=== PATIENT | male | born 1955 | race Caucasian/White ===

== ENCOUNTER 2025-02-04 10:53 | Outpatient (CLI) | payer MEDICARE, BC, SELFPAY | END 2025-02-04 10:54 | disposition home or self-care (01) | LOC: INJ CL 10:54 | PROVIDERS: PCP Family Medicine; Visit Provider Family Medicine | DX: M51.369 Other intervertebral disc degeneration, lumbar region without mention of lumbar back pain or lower extremity pain (principal); M54.16 Radiculopathy, lumbar region | CPT/HCPCS: 62323; J0702; Q9966 ==

== ENCOUNTER 2025-04-01 10:09 | Outpatient (CLI) | payer MEDICARE, BC, SELFPAY | END 2025-04-01 10:10 | disposition home or self-care (01) | LOC: INJ CL 10:10 | PROVIDERS: PCP Family Medicine; Visit Provider Family Medicine | DX: M54.16 Radiculopathy, lumbar region (principal); M51.369 Other intervertebral disc degeneration, lumbar region without mention of lumbar back pain or lower extremity pain | CPT/HCPCS: 64483; J1100; Q9966 ==

== ENCOUNTER 2025-06-17 07:53 | Outpatient (CLI) | payer MEDICARE, BC, SELFPAY | END 2025-06-17 07:54 | disposition home or self-care (01) | LOC: INJ CL 07:54 | PROVIDERS: PCP Family Medicine; Visit Provider Family Medicine | DX: M54.16 Radiculopathy, lumbar region (principal) | CPT/HCPCS: 64483; J1100; Q9966 ==